=== PATIENT | female | born 1995 | race Caucasian/White ===

== ENCOUNTER 2016-08-14 14:14 | Emergency (ER) | payer OTHER ==
[2016-08-14] MEDS ORDERED: predniSONE 20 MG TABLET PO STA (16:20)
[2016-08-14] MEDS ORDERED: predniSONE 20 MG TABLET ONE (16:22)
--- NOTE | 2016-08-14 16:23 | ED Physician Documentation ---
PD HPI SKIN - Stated complaint Stated Complaint: SOA/ALLERGIC RX TO PERSCRIPTION/HIVES - Chief complaint Chief Complaint: Allergic Rx - History obtained from History obtained from: Patient - History of Present Illness Timing - onset: Other (21-year-old who has been on a few days worth of Macrobid and Pyridium. She's never been on Macrobid before, but has been on Pyridium multiple times. Her UTI symptoms are pretty much gone but today she developed an itchy rash which responded to Benadryl and some shortness of breath without overt wheezing.) Review of Systems Constitutional: denies: Fever, Chills Nose: denies: Rhinorrhea / runny nose, Congestion Throat: denies: Sore throat Cardiac: denies: Chest pain / pressure, Palpitations, Pedal edema, Calf pain Respiratory: denies: Hemoptysis, Wheezing PD PAST MEDICAL HISTORY - Past Medical History Respiratory: Asthma : Kidney stones, Chronic bladder infection - Past Surgical History Past Surgical History: No - Present Medications Home Medications: Ambulatory Orders Medication Instructions Recorded Confirmed Nitrofurantoin Monohyd/M-Cryst 1 tab PO BID 08/14/16 08/14/16 [Nitrofurantoin [place]-Mcr 100 mg] Phenazopyridine [Pyridium] 2 tab PO TID 08/14/16 08/14/16 predniSONE [Deltasone] 60 mg PO DAILY 5 Days 08/14/16 - Allergies Allergies/Adverse Reactions: Allergies Allergy/AdvReac Type Severity Reaction Status Date / Time latex Allergy Intermediate unknown Verified 08/14/16 14:25 Penicillins Allergy Mild unknown Verified 08/14/16 14:25 Sulfa (Sulfonamide Allergy Edema Verified 08/14/16 14:25 Antibiotics) acetaminophen [From Vicodin] AdvReac Mild unknown Verified 08/14/16 14:25 codeine [Codeine] AdvReac Mild Nausea Verified 08/14/16 14:25 hydrocodone bitartrate * AdvReac Mild unknown Verified 08/14/16 14:25 [From Vicodin] tape AdvReac Mild unknown Uncoded 08/14/16 14:25 - Social History Does the pt smoke?: Yes Smoking Status: Current every day smoker Does the pt drink ETOH?: No Does the pt have substance abuse?: Yes - Immunizations Immunizations are current?: Yes - POLST Patient has POLST: No PD ED PE NORMAL - Vitals Vital signs reviewed: Yes - General General: Alert and oriented X 3, No acute distress - HEENT HEENT: PERRL, Pharynx benign - Neck Neck: Supple, no meningeal sign, No bony TTP - Cardiac Cardiac: RRR, No murmur - Respiratory Respiratory: No respiratory distress, Clear bilaterally - Abdomen Abdomen: Non tender - Back Back: No CVA TTP - Derm Derm: Other (Mild urticaria to the thighs) - Extremities Extremities: No edema, No calf tenderness / cord - Neuro Neuro: Alert and oriented X 3, Normal speech Results - Vitals Vitals: Vital Signs - 24 hr 08/14/16 14:16 Temperature 36.8 C Heart Rate 107 H Respiratory 18 Rate Blood Pressure 117/79 O2 Saturation 100 Oxygen O2 Source Room air Departure - Departure Disposition: 01 Home, Self Care Clinical Impression: Allergic urticaria Condition: Good Record reviewed to determine appropriate education?: Yes Instructions: ED Allergic Reaction General Other Prescriptions: predniSONE [Deltasone] 60 mg PO DAILY 5 Days Comments: You can continue to take Benadryl as needed for the itching. Return if worse. Followup with your physician. Avoid taking Macrobid/nitrofurantoin in the future. Return for any worsening complaints or recurrent UTI symptoms. Forms: Activity restrictions
[2016-08-14 16:32] VITALS: BP 114/74
== END 2016-08-14 16:31 | disposition home or self-care (01) ==
LOC: ED 14:14
DX: L50.0 Allergic urticaria (principal); Z87.442 Personal history of urinary calculi; F17.200 Nicotine dependence, unspecified, uncomplicated
CPT/HCPCS: 99283; J7512

== ENCOUNTER 2017-03-24 14:35 | Emergency (ER) | payer OTHER, MEDICAID ==
[2017-03-24 15:28] LABS: BASOPHILS # (AUTO) 0.1 10^3/uL (0.0-0.1); BASOPHILS % (AUTO) 0.9 %; EOSINOPHILS # (AUTO) 0.3 10^3/uL (0.0-0.7); EOSINOPHILS % (AUTO) 3.2 %; HGB - HEMOGLOBIN 13.6 g/dL (12.0-16.0); LYMPHOCYTES # (AUTO) 1.9 10^3/uL (1.5-3.5); LYMPHOCYTES % (AUTO) 21.3 %; MEAN CORPUSCULAR HEMOGLOBIN 29.7 pg (27.0-31.0); MEAN CORPUSCULAR HGB CONC 34.5 g/dL (32.0-36.0); MEAN CORPUSCULAR VOLUME 86.1 fL (81.0-99.0); MEAN PLATELET VOLUME 8.3 fL (7.9-10.8); MONOCYTES # (AUTO) 0.6 10^3/uL (0.0-1.0); MONOCYTES % (AUTO) 7.1 %; NEUTROPHILS # (AUTO) 5.9 10^3/uL (1.5-6.6); NEUTROPHILS % (AUTO) 67.5 %; PLT - PLATELET COUNT 252 10^3/uL (130-450); RED BLOOD COUNT 4.59 10^6/uL (4.20-5.40); RED CELL DISTRIBUTION WIDTH 13.9 % (12.0-15.0); WHITE BLOOD COUNT 8.7 x10^3/uL (4.8-10.8)
[2017-03-24 15:31] LABS: ALBUMIN 4.6 g/dL (3.2-5.5); ALBUMIN/GLOBULIN RATIO 1.6 (1.0-2.2); BILIRUBIN,TOTAL 1.1 mg/dL (0.2-1.0); CREATININE 0.7 mg/dL (0.4-1.0); INR 1.1 (0.8-1.2); PT - PROTHROMBIN TIME 11.9 secs (9.9-12.6); TOTAL PROTEIN 7.4 g/dL (6.7-8.2)
[2017-03-24 16:08] LABS: HCG,QUALITATIVE BLOOD NEGATIVE
--- NOTE | 2017-03-24 16:20 | ED Physician Documentation ---
History of Present Illness - Stated complaint Stated Complaint: FEMALE /??? - Chief complaint Chief Complaint: Abd Pain - Additonal information Additional information: hx from pt 21 f LMP Nov not on control to ER with pelvic cramping and bleeding onset this AM states bleeding heavy with clots changing pad [id number] no trauma Review of Systems Constitutional: denies: Fever GI: reports: Abdominal Pain : reports: LMP (Nov), Vaginal bleeding. denies: Now EGA (maybe) Endocrine: denies: Easy bruising / bleeding Immunocompromised: denies: Immunocompromised PD PAST MEDICAL HISTORY - Past Medical History Respiratory: Asthma : Kidney stones, Chronic bladder infection - Past Surgical History Past Surgical History: No - Present Medications Home Medications: Ambulatory Orders Medication Instructions Recorded Confirmed Nitrofurantoin Monohyd/M-Cryst 1 tab PO BID 08/14/16 08/14/16 [Nitrofurantoin [place]-Mcr 100 mg] Phenazopyridine [Pyridium] 2 tab PO TID 08/14/16 08/14/16 predniSONE [Deltasone] 60 mg PO DAILY 5 Days tablet 08/14/16 Cyclobenzaprine [Flexeril] 10 mg PO TID PRN #10 tablet 03/24/17 Ibuprofen [Motrin] 800 mg PO Q8H PRN #30 tablet 03/24/17 - Allergies Allergies/Adverse Reactions: Allergies Allergy/AdvReac Type Severity Reaction Status Date / Time latex Allergy Intermediate unknown Verified 08/14/16 14:25 Penicillins Allergy Mild unknown Verified 08/14/16 14:25 Sulfa (Sulfonamide Allergy Edema Verified 08/14/16 14:25 Antibiotics) acetaminophen [From Vicodin] AdvReac Mild unknown Verified 08/14/16 14:25 codeine [Codeine] AdvReac Mild Nausea Verified 08/14/16 14:25 hydrocodone bitartrate * AdvReac Mild unknown Verified 08/14/16 14:25 [From Vicodin] nitrofurantoin AdvReac Rash Verified 08/14/16 16:30 [From Macrobid] nitrofurantoin AdvReac Rash Verified 08/14/16 16:30 macrocrystalline * [From Macrobid] tape AdvReac Mild unknown Uncoded 08/14/16 14:25 - Social History Does the pt smoke?: Yes Smoking Status: Current every day smoker Does the pt drink ETOH?: No Does the pt have substance abuse?: Yes - Immunizations Immunizations are current?: Yes - POLST Patient has POLST: No PD ED PE NORMAL - Vitals Vital signs reviewed: Yes - Cardiac Cardiac: RRR - Respiratory Respiratory: No respiratory distress, Clear bilaterally - Abdomen Abdomen: Soft, Non tender - Female 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), Other (dark blood from os and in vault no dc no sig CMT cervix closed no tissue no visible lac) - Extremities Extremities: No deformity Results - Vitals Vitals: Vital Signs - 24 hr 03/24/17 03/24/17 14:44 18:28 Temperature 36.4 C L Heart Rate 92 73 Respiratory 18 18 Rate Blood Pressure 134/75 H 112/52 L O2 Saturation 100 97 Oxygen O2 Source Room air - Labs Labs: Microbiology 03/24/17 15:50 Wet Prep - Final Genital - Cervix Laboratory Tests 03/24/17 03/24/17 03/24/17 15:11 15:11 15:11 WBC 8.7 RBC 4.59 Hgb 13.6 Hct 39.5 MCV 86.1 MCH 29.7 MCHC 34.5 RDW 13.9 Plt Count 252 MPV 8.3 Neut # 5.9 Lymph # 1.9 [place] # 0.6 Eos # 0.3 Baso # 0.1 Absolute Nucleated RBC 0.00 Nucleated RBC % 0.0 PT 11.9 INR 1.1 APTT 29.4 Sodium 137 Potassium 4.0 Chloride 106 Carbon Dioxide 24 Anion Gap 7.0 BUN 13 Creatinine 0.7 Estimated GFR (MDRD) 104 Glucose 99 Calcium 9.0 Total Bilirubin 1.1 H AST 21 ALT 12 Alkaline Phosphatase 40 L Total Protein 7.4 Albumin 4.6 Globulin 2.8 Albumin/Globulin Ratio 1.6 Lipase 13 L Serum HCG, Qual Urine Color Urine Clarity Urine pH Ur Specific [place] Urine Protein Urine Glucose (UA) Urine Ketones Urine Occult Blood Urine Nitrite Urine Bilirubin Urine Urobilinogen Ur Leukocyte Esterase Urine RBC Urine WBC Ur Squamous Epith Cells Urine Bacteria Ur Microscopic Review Urine Culture Comments 03/24/17 03/24/17 15:11 17:10 WBC RBC Hgb Hct MCV MCH MCHC RDW Plt Count MPV Neut # Lymph # [place] # Eos # Baso # Absolute Nucleated RBC Nucleated RBC % PT INR APTT Sodium Potassium Chloride Carbon Dioxide Anion Gap BUN Creatinine Estimated GFR (MDRD) Glucose Calcium Total Bilirubin AST ALT Alkaline Phosphatase Total Protein Albumin Globulin Albumin/Globulin Ratio Lipase Serum HCG, Qual NEGATIVE Urine Color YELLOW Urine Clarity CLEAR Urine pH 8.0 H Ur Specific [place] 1.020 Urine Protein NEGATIVE Urine Glucose (UA) NEGATIVE Urine Ketones TRACE Urine Occult Blood LARGE H Urine Nitrite NEGATIVE Urine Bilirubin NEGATIVE Urine Urobilinogen 0.2 (NORMAL) Ur Leukocyte Esterase NEGATIVE Urine RBC TNTC H Urine WBC 6-10 H Ur Squamous Epith Cells FEW Squamous Urine Bacteria Few Ur Microscopic Review INDICATED Urine Culture Comments INDICATED Departure - Departure Disposition: 01 Home, Self Care Clinical Impression: Dysfunctional uterine bleeding Condition: Good Instructions: ED Bleed Irregular Vaginal Follow-Up: Michael Stoner MD [Provider Admit Priv/Credential] - Prescriptions: Cyclobenzaprine [Flexeril] 10 mg PO TID PRN #10 tablet PRN Reason: cramping Ibuprofen [Motrin] 800 mg PO Q8H PRN #30 tablet PRN Reason: Pain Forms: Activity restrictions
[2017-03-24] MEDS ORDERED: KETOROLAC 60 MG/2 ML VIAL IVP STA (17:27)
[2017-03-24 17:47] LABS: BILIRUBIN,URINE NEGATIVE (NEGATIVE); GLUCOSE, URINE (UA) NEGATIVE (NEGATIVE); KETONES,URINE (UA) TRACE mg/dL (NEGATIVE); LEUKOCYTE ESTERASE, URINE NEGATIVE (NEGATIVE); NITRITE,URINE NEGATIVE (NEGATIVE); OCCULT BLOOD,URINE LARGE (NEGATIVE); PROTEIN,URINE NEGATIVE (NEGATIVE); UROBILINOGEN,URINE 0.2 (NORMAL) E.U./dL (NORMAL)
[2017-03-24 17:51] LABS: CLARITY,URINE CLEAR (CLEAR)
[2017-03-24 17:59] LABS: BACTERIA,URINE Few /HPF (None Seen); RBC,URINE TNTC /HPF (0-5); SQUAMOUS EPITHELIAL CELL,UR FEW Squamous (<= Few)
[2017-03-24] MEDS ORDERED: KETOROLAC 60 MG/2 ML VIAL IM STA (18:15)
--- NOTE | 2017-03-24 18:27 | Ultrasound Report ---
EXAM: PELVIC ULTRASOUND EXAM DATE: 03/24/2017 05:53 PM. CLINICAL HISTORY: Vaginal bleeding. COMPARISON: None. TECHNIQUE: Realtime transabdominal pelvic scan performed to identify the uterus and adnexa and as an overview of other pelvic structures, followed by transvaginal scan to provide greater detail of the u terus and adnexa, with static image documentation. FINDINGS: Uterus: 7.0 x 2.9 x 4.1 cm, volume 43 cc. Anteverted position. Normal overall size and echotexture. Masses: None. Endometrium: 9 mm. Normal. Cervix: Unremarkable. Right Ovary: 3.3 x 2.2 x 1.8 cm, volume 7 cc. Normal echotexture and blood flow. Left Ovary: 2.9 x 2.0 x 2.5 cm, volume 8 cc. Normal echotexture and blood flow. Free Fluid: None. Other: None. IMPRESSION: Normal pelvic ultrasound. [facility] Referring Provider Line: [phone] SITE ID: [id number]
[2017-03-24 18:29] VITALS: BP 112/52
== END 2017-03-24 19:06 | disposition home or self-care (01) ==
LOC: ED 14:35
DX: N93.8 Other specified abnormal uterine and vaginal bleeding (principal); J45.909 Unspecified asthma, uncomplicated; Z87.442 Personal history of urinary calculi; F17.200 Nicotine dependence, unspecified, uncomplicated
CPT/HCPCS: 36415; 76830; 76856; 80053; 81001; 81003; 83690; 84703; 85025; 85610; 85730; 87086; 87210; 87491; 87591; 93975; 96372; 99283

== ENCOUNTER 2018-06-05 11:34 | Emergency (ER) | payer MEDICAID, OTHER ==
[2018-06-05 12:13] LABS: BILIRUBIN,URINE NEGATIVE (NEGATIVE); GLUCOSE, URINE (UA) NEGATIVE (NEGATIVE); KETONES,URINE (UA) TRACE mg/dL (NEGATIVE); LEUKOCYTE ESTERASE, URINE NEGATIVE (NEGATIVE); NITRITE,URINE NEGATIVE (NEGATIVE); OCCULT BLOOD,URINE NEGATIVE (NEGATIVE); PH,URINE 7.5 PH (5.0-7.5); PROTEIN,URINE NEGATIVE (NEGATIVE); UROBILINOGEN,URINE 0.2 (NORMAL) E.U./dL (NORMAL)
[2018-06-05 12:17] LABS: CLARITY,URINE HAZY (CLEAR); HCG UR QUAL NEGATIVE
[2018-06-05 12:28] LABS: BACTERIA,URINE Rare /HPF (None Seen); RBC,URINE 0-5 /HPF (0-5); SQUAMOUS EPITHELIAL CELL,UR MOD Squamous (<= Few)
[2018-06-05] MEDS ORDERED: LORazepam 2 MG/ML VIAL IVP STA (12:41)
[2018-06-05] MEDS ORDERED: KETOROLAC 30 MG/ML VIAL IVP STA (12:41)
--- NOTE | 2018-06-05 12:43 | ED Physician Documentation ---
History of Present Illness - Stated complaint Stated Complaint: SOA,BODY NUMBNESS - Chief complaint Chief Complaint: General - History obtained from History obtained from: Patient - History of Present Illness Timing: Last night (23-year-old woman without significant past medical history started to have a minimally productive cough with shortness of breath last night. Today the shortness of breath was much worse, especially on exertion and she started to become dizzy and have hand cramps and hyperventilating get numb and tingly all over especially in the hands, feet, and face. She denies fevers or chills. She has left lower chest pain that is worse with deep breathing and coughing. She denies pedal edema or calf pain. She is not on control pills. No recent travel.) Review of Systems Ten Systems: 10 systems reviewed and negative Constitutional: denies: Fever, Chills Throat: denies: Sore throat Cardiac: reports: Chest pain / pressure. denies: Palpitations, Pedal edema, Calf pain Respiratory: reports: Dyspnea, Cough. denies: Hemoptysis, Wheezing PD PAST MEDICAL HISTORY - Past Medical History Respiratory: Asthma : Kidney stones, Chronic bladder infection - Past Surgical History Past Surgical History: No - Present Medications Home Medications: Ambulatory Orders Medication Instructions Recorded Confirmed Benzonatate [Tessalon Perle] 100 - 200 mg PO TID PRN #30 capsule 06/05/18 guaiFENesin/CODEINE [Robitussin AC] 5 - 10 ml PO Q6H PRN #120 ml 06/05/18 - Allergies Allergies/Adverse Reactions: Allergies Allergy/AdvReac Type Severity Reaction Status Date / Time latex Allergy Intermediate unknown Verified 06/05/18 11:44 Penicillins Allergy Mild unknown Verified 06/05/18 11:44 Sulfa (Sulfonamide Allergy Edema Verified 06/05/18 11:44 Antibiotics) acetaminophen [From Vicodin] AdvReac Mild unknown Verified 06/05/18 11:44 codeine [Codeine] AdvReac Mild Nausea Verified 06/05/18 11:44 hydrocodone bitartrate * AdvReac Mild unknown Verified 06/05/18 11:44 [From Vicodin] nitrofurantoin AdvReac Rash Verified 06/05/18 11:44 [From Macrobid] nitrofurantoin AdvReac Rash Verified 06/05/18 11:44 macrocrystalline * [From Macrobid] tape AdvReac Mild unknown Uncoded 06/05/18 11:44 - Social History Does the pt smoke?: Yes Smoking Status: Current every day smoker Does the pt drink ETOH?: No Does the pt have substance abuse?: Yes - Immunizations Immunizations are current?: Yes - POLST Patient has POLST: No PD ED PE NORMAL - Vitals Vital signs reviewed: Yes - General General: Alert and oriented X 3, No acute distress - HEENT HEENT: PERRL, EOMI, Pharynx benign - Neck Neck: Supple, no meningeal sign, No bony TTP - Cardiac Cardiac: RRR, No murmur - Respiratory Respiratory: No respiratory distress, Clear bilaterally - Abdomen Abdomen: Normal bowel sounds, Soft, Non tender - Extremities Extremities: No edema, No calf tenderness / cord - Neuro Neuro: Alert and oriented X 3, Normal speech Results - Vitals Vitals: Vital Signs - 24 hr 06/05/18 06/05/18 11:41 13:34 Temperature 36.4 C L Heart Rate 103 H 91 Respiratory 24 14 Rate Blood Pressure 132/61 H 119/64 O2 Saturation 100 99 Oxygen O2 Source Room air - Labs Labs: Laboratory Tests 06/05/18 06/05/18 06/05/18 11:56 12:34 12:34 WBC 6.2 RBC 4.23 Hgb 12.8 Hct 37.7 MCV 89.2 MCH 30.2 MCHC 33.9 RDW 12.7 Plt Count 238 MPV 8.4 Neut # (Auto) 4.8 Lymph # (Auto) 0.6 L [place] # (Auto) 0.6 Eos # (Auto) 0.1 Baso # (Auto) 0.0 Absolute Nucleated RBC 0.00 Nucleated RBC % 0.0 D-Dimer VBG pH VBG pCO2 VBG pO2 VBG HCO3 VBG Total CO2 VBG O2 Saturation VBG Base Excess Sodium 136 Potassium 3.4 L Chloride 103 Carbon Dioxide 25 Anion Gap 8.0 BUN 13 Creatinine 0.6 Estimated GFR (MDRD) 122 Glucose 107 H Calcium 8.9 Total Bilirubin 1.1 H AST 23 ALT 14 Alkaline Phosphatase 35 L Total Protein 7.0 Albumin 4.1 Globulin 2.9 Albumin/Globulin Ratio 1.4 Lipase 23 Urine Color YELLOW Urine Clarity HAZY Urine pH 7.5 Ur Specific [place] 1.015 Urine Protein NEGATIVE Urine Glucose (UA) NEGATIVE Urine Ketones TRACE Urine Occult Blood NEGATIVE Urine Nitrite NEGATIVE Urine Bilirubin NEGATIVE Urine Urobilinogen 0.2 (NORMAL) Ur Leukocyte Esterase NEGATIVE Urine RBC 0-5 Urine WBC 0-3 Ur Squamous Epith Cells MOD Squamous H Urine Bacteria Rare Ur Microscopic Review INDICATED Urine Culture Comments NOT INDICATED Urine HCG, Qual NEGATIVE 06/05/18 06/05/18 12:34 12:34 WBC RBC Hgb Hct MCV MCH MCHC RDW Plt Count MPV Neut # (Auto) Lymph # (Auto) [place] # (Auto) Eos # (Auto) Baso # (Auto) Absolute Nucleated RBC Nucleated RBC % D-Dimer 172.6 L VBG pH 7.418 H VBG pCO2 37.9 L VBG pO2 46.2 VBG HCO3 23.9 VBG Total CO2 25.1 VBG O2 Saturation 83.7 H VBG Base Excess -0.3 Sodium Potassium Chloride Carbon Dioxide Anion Gap BUN Creatinine Estimated GFR (MDRD) Glucose Calcium Total Bilirubin AST ALT Alkaline Phosphatase Total Protein Albumin Globulin Albumin/Globulin Ratio Lipase Urine Color Urine Clarity Urine pH Ur Specific [place] Urine Protein Urine Glucose (UA) Urine Ketones Urine Occult Blood Urine Nitrite Urine Bilirubin Urine Urobilinogen Ur Leukocyte Esterase Urine RBC Urine WBC Ur Squamous Epith Cells Urine Bacteria Ur Microscopic Review Urine Culture Comments Urine HCG, Qual - Rads (name of study) 2v chest Radiology: EMP read contemporaneously (normal) PD MEDICAL DECISION MAKING - ED course ED course: This is a 23-year-old woman who had a cough since last night which worsened today and then became more short of breath with chest pain, and what sounds like a panic attack. She was tachycardic so a PE workup was done with negative d- dimer, clear chest x-ray and otherwise reassuring otherwise. She felt better but not resolved here with some Toradol and Ativan but was no longer hyperventilating. Departure - Departure Disposition: 01 Home, Self Care Clinical Impression: Cough, Panic attack Dyspnea Qualifiers: Dyspnea type: shortness of breath Qualified Code(s): R06.02 - Shortness of breath Condition: Good Record reviewed to determine appropriate education?: Yes Instructions: ED Dyspnea Shortness of Breath, ED Panic Attack Prescriptions: Benzonatate [Tessalon Perle] 100 - 200 mg PO TID PRN #30 capsule PRN Reason: Cough guaiFENesin/CODEINE [Robitussin AC] 5 - 10 ml PO Q6H PRN #120 ml PRN Reason: Cough Comments: Call your doctor to arrange a follow-up appointment, make the next available appointment. In the interim, return anytime if worse or if new symptoms develop. Forms: Activity restrictions
[2018-06-05 12:47] LABS: VBG BASE EXCESS -0.3 mmol/L (-2 - +2); VBG PCO2 37.9 mmHg (41-51); VBG PH 7.418 (7.31-7.41); VBG PO2 46.2 mmHg (25-47); VBG TOTAL CO2 25.1 mmol/L (24-29)
[2018-06-05 13:06] LABS: BASOPHILS % (AUTO) 0.6 %; EOSINOPHILS # (AUTO) 0.1 10^3/uL (0.0-0.7); EOSINOPHILS % (AUTO) 2.1 %; HGB - HEMOGLOBIN 12.8 g/dL (12.0-16.0); LYMPHOCYTES # (AUTO) 0.6 10^3/uL (1.5-3.5); LYMPHOCYTES % (AUTO) 9.4 %; MEAN CORPUSCULAR HEMOGLOBIN 30.2 pg (27.0-31.0); MEAN CORPUSCULAR HGB CONC 33.9 g/dL (32.0-36.0); MEAN CORPUSCULAR VOLUME 89.2 fL (81.0-99.0); MEAN PLATELET VOLUME 8.4 fL (7.9-10.8); MONOCYTES # (AUTO) 0.6 10^3/uL (0.0-1.0); MONOCYTES % (AUTO) 9.7 %; NEUTROPHILS # (AUTO) 4.8 10^3/uL (1.5-6.6); NEUTROPHILS % (AUTO) 78.2 %; PLT - PLATELET COUNT 238 10^3/uL (130-450); RED BLOOD COUNT 4.23 10^6/uL (4.20-5.40); RED CELL DISTRIBUTION WIDTH 12.7 % (12.0-15.0); WHITE BLOOD COUNT 6.2 x10^3/uL (4.8-10.8)
[2018-06-05 13:19] LABS: ALBUMIN 4.1 g/dL (3.2-5.5); ALBUMIN/GLOBULIN RATIO 1.4 (1.0-2.2); BILIRUBIN,TOTAL 1.1 mg/dL (0.2-1.0); CALCIUM 8.9 mg/dL (8.5-10.3); CREATININE 0.6 mg/dL (0.4-1.0)
[2018-06-05 13:35] VITALS: BP 119/64
--- NOTE | 2018-06-05 13:41 | XRAY Report ---
Reason: dyspnea cough Procedure Date: 06/05/2018 Accession Number: [id number] / [id number] Procedure: XR - Chest 2 View X-Ray CPT Code: 02290 FULL RESULT: EXAM: CHEST RADIOGRAPHY EXAM DATE: 06/05/2018 01:24 PM. CLINICAL HISTORY: Dyspnea cough. COMPARISON: None. TECHNIQUE: 2 views. FINDINGS: Lungs/Pleura: No focal opacities evident. No pleural effusion. No pneumothorax. Normal volumes. Mediastinum: Heart and mediastinal contours are unremarkable. Other: Negative bony structures. IMPRESSION: Normal 2-view chest radiography. [facility]
== END 2018-06-05 14:00 | disposition home or self-care (01) ==
LOC: ED 11:34
DX: R06.02 Shortness of breath (principal); R05 Cough; F41.0 Panic disorder [episodic paroxysmal anxiety]; F17.200 Nicotine dependence, unspecified, uncomplicated
CPT/HCPCS: 36415; 71046; 80053; 81001; 81025; 82803; 83690; 85025; 85379; 96374; 99283; J2060; 81003; 87086

== ENCOUNTER 2018-09-16 08:00 | Outpatient (CLI) | payer OTHER ==
[2018-09-16 18:13] LABS: BILIRUBIN,URINE NEGATIVE (NEGATIVE); GLUCOSE, URINE (UA) NEGATIVE (NEGATIVE); KETONES,URINE (UA) NEGATIVE (NEGATIVE); LEUKOCYTE ESTERASE, URINE TRACE (NEGATIVE); NITRITE,URINE NEGATIVE (NEGATIVE); OCCULT BLOOD,URINE MODERATE (NEGATIVE); PH,URINE 5.5 PH (5.0-7.5); PROTEIN,URINE NEGATIVE (NEGATIVE); UROBILINOGEN,URINE 0.2 (NORMAL) E.U./dL (NORMAL)
[2018-09-16 18:20] LABS: CLARITY,URINE CLOUDY (CLEAR)
[2018-09-16 18:30] LABS: BACTERIA,URINE Moderate /HPF (None Seen); SQUAMOUS EPITHELIAL CELL,UR MOD Squamous (<= Few)
== END 2018-09-16 23:59 | disposition home or self-care (01) ==
LOC: LAB.R 08:00
PROVIDERS: ATTEND Obstetrics & Gynecology
DX: R39.15 Urgency of urination (principal)
CPT/HCPCS: 81001; 81003; 87086

== ENCOUNTER 2018-09-16 14:44 | Outpatient (CLI) | payer OTHER ==
[2018-09-16 22:04] LABS: TRICHOMONAS VAGINALIS DNA NEGATIVE (NEGATIVE)
[2018-09-17 16:09] LABS: HIV AG/AB 4TH GEN NON-REACTIVE (NON-REACTIVE)
[2018-09-18 12:24] LABS: HEPATITIS B SURFACE ANTIGEN NON-REACTIVE (NON-REACTIVE)
[2018-09-18 14:13] LABS: HEPATITIS C ANTIBODY NON-REACTIVE (NON-REACTIVE)
== END 2018-09-16 14:45 | disposition home or self-care (01) ==
LOC: LAB 14:44
PROVIDERS: ATTEND Obstetrics & Gynecology
DX: Z11.3 Encounter for screening for infections with a predominantly sexual mode of transmission (principal); R39.15 Urgency of urination
CPT/HCPCS: 36415; 81001; 81599; 86592; 86803; 87340; 87389; 87491; 87591; 87661

== ENCOUNTER 2018-10-07 08:00 | Outpatient (CLI) | payer OTHER | END 2018-10-07 23:59 | disposition home or self-care (01) | LOC: LAB.R 08:00 | PROVIDERS: ATTEND Obstetrics & Gynecology | DX: A60.00 Herpesviral infection of urogenital system, unspecified (principal) | CPT/HCPCS: 81599; 87255 ==

== ENCOUNTER 2018-10-07 14:35 | Outpatient (CLI) | payer OTHER ==
[2018-10-09 10:42] LABS: HSV 2 IGG TYPE SPECIFIC AB <0.90 index
== END 2018-10-07 14:36 | disposition home or self-care (01) ==
LOC: LAB 14:35
PROVIDERS: ATTEND Obstetrics & Gynecology
DX: A60.00 Herpesviral infection of urogenital system, unspecified (principal)
CPT/HCPCS: 36415; 81599; 86695; 86696

== ENCOUNTER 2018-12-29 11:49 | Emergency (ER) | payer OTHER ==
--- NOTE | 2018-12-29 12:13 | ED Physician Documentation ---
History of Present Illness - Stated complaint Stated Complaint: ABD PX - Chief complaint Chief Complaint: Abd Pain - Additonal information Additional information: This is a 23-year-old female with history of kidney stones, who presents with some abdominal pain for around 1 week. Patient states she saw her primary care provider who stated that this could be an hernia, though it sound like she did not definitively be palpate any. She counseled her on supportive care and asked her to follow-up if she is having any worsening. Patient has had intermittent stabbing pains in the left lower quadrant over the last several days, no nausea or vomiting, no diarrhea. Her period began yesterday, she is having increased discomfort.She has not noticed any bulges or masses. Review of Systems Constitutional: denies: Fever Nose: denies: Rhinorrhea / runny nose Respiratory: denies: Dyspnea GI: reports: Abdominal Pain. denies: Vomiting : denies: Dysuria PD PAST MEDICAL HISTORY - Past Medical History Respiratory: Asthma : Kidney stones, Chronic bladder infection Psych: Anxiety - Past Surgical History Past Surgical History: No - Present Medications Home Medications: Ambulatory Orders Medication Instructions Recorded Confirmed No Known Home Medications 12/29/18 12/29/18 - Allergies Allergies/Adverse Reactions: Allergies Allergy/AdvReac Type Severity Reaction Status Date / Time latex Allergy Intermediate unknown Verified 12/29/18 11:58 Penicillins Allergy Mild unknown Verified 12/29/18 11:58 Sulfa (Sulfonamide Allergy Edema Verified 12/29/18 11:58 Antibiotics) acetaminophen [From Vicodin] AdvReac Mild unknown Verified 12/29/18 11:58 codeine [Codeine] AdvReac Mild Nausea Verified 12/29/18 11:58 hydrocodone bitartrate * AdvReac Mild unknown Verified 12/29/18 11:58 [From Vicodin] nitrofurantoin AdvReac Rash Verified 12/29/18 11:58 [From Macrobid] nitrofurantoin AdvReac Rash Verified 12/29/18 11:58 macrocrystalline * [From Macrobid] tape AdvReac Mild unknown Uncoded 12/29/18 11:58 - Social History Does the pt smoke?: Yes Smoking Status: Current every day smoker Does the pt drink ETOH?: No Does the pt have substance abuse?: Yes - Immunizations Immunizations are current?: Yes - POLST Patient has POLST: No PD ED PE NORMAL - Vitals Vital signs reviewed: Yes - General General: Alert and oriented X 3, No acute distress - HEENT HEENT: PERRL - Neck Neck: Supple, no meningeal sign - Cardiac Cardiac: RRR, No murmur - Respiratory Respiratory: Clear bilaterally - Abdomen Abdomen: Soft, Non tender, Non distended, Other (Mild tenderness in the left lower quadrant, no right upper quadrant or right lower quadrant tenderness. No palpable masses in the inguinal region) - Derm Derm: Warm and dry - Extremities Extremities: No deformity - Neuro Neuro: Alert and oriented X 3 - Psych Psych: Normal mood, Normal affect Results - Vitals Vitals: Oxygen O2 Source Room air - Labs Labs: Laboratory Tests 12/29/18 12/29/18 12/29/18 12:03 12:11 12:11 WBC 7.3 RBC 4.15 L Hgb 12.3 Hct 36.8 L MCV 88.7 MCH 29.6 MCHC 33.4 RDW 12.5 Plt Count 290 MPV 10.2 Neut # (Auto) 4.3 Lymph # (Auto) 2.0 [place] # (Auto) 0.6 Eos # (Auto) 0.3 Baso # (Auto) 0.1 Absolute Nucleated RBC 0.00 Nucleated RBC % 0.0 Sodium 141 Potassium 3.7 Chloride 107 Carbon Dioxide 25 Anion Gap 9.0 BUN 13 Creatinine 0.7 Estimated GFR (MDRD) 102 Glucose 89 Calcium 9.0 Total Bilirubin 0.4 AST 20 ALT 13 Alkaline Phosphatase 42 Total Protein 7.6 Albumin 4.3 Globulin 3.3 Albumin/Globulin Ratio 1.3 Lipase 28 Urine Color YELLOW Urine Clarity CLEAR Urine pH 6.5 Ur Specific [place] 1.020 Urine Protein NEGATIVE Urine Glucose (UA) NEGATIVE Urine Ketones NEGATIVE Urine Occult Blood TRACE-LYSE Urine Nitrite NEGATIVE Urine Bilirubin NEGATIVE Urine Urobilinogen 0.2 (NORMAL) Ur Leukocyte Esterase NEGATIVE Ur Microscopic Review NOT INDICATED Urine Culture Comments NOT INDICATED Urine HCG, Qual NEGATIVE - Rads (name of study) US pelvic Radiology: Other (Ovaries are normal in appearance without signs of torsion.) PD MEDICAL DECISION MAKING - ED course Complexity details: considered differential (Hernia, torsion, hemorrhagic cyst, diverticulitis, UTI, ) ED course: On my exam patient is very well-appearing, she has a mild amount of tenderness in her left lower quadrant, no guarding. Remainder of abdomen is nontender. There are no palpable masses. I do not palpate any inguinal masses either. She points at one spot where she feels that she can palpate something, and this is a small 1 cm rubbery mobile structure in her inguinal crease, which is clearly a lymph node. Labs are unrevealing, she has no leukocytosis. hCG is negative. Urine is negative for infection. Pelvic ultrasound shows Normal blood flow to 2 unremarkable ovaries, no acute expansion of patient's pain. I reviewed the results of the patient, she continues to have a benign abdominal exam, and no new symptoms. I discussed that do not see an obvious cause of her pain as time, she should continue to follow with her primary care provider and If her primary care provider thought that she had convincing signs of hernia, she should follow with a general surgeon as well. Return precautions were reviewed along with supportive care patient was discharged home. Departure - Departure Disposition: 01 Home, Self Care Clinical Impression: Abdominal pain Qualifiers: Abdominal location: left lower quadrant Qualified Code(s): R10.32 - Left lower quadrant pain Condition: Good Instructions: ED Abdominal Pain Unkn Cause Follow-Up: Your,PCP [Other] Comments: You were seen today for abdominal pain, your labs today do not show any signs of infection or obvious cause for your pain. I do not see an obvious hernia on today's exam, please continue to follow-up with your primary care provider and if they feel that you do have a hernia you should follow-up with a general surgeon for evaluation as well. You may take Tylenol and ibuprofen for your discomfort in the meantime. Return to emergency department if you have any worsening symptoms Discharge Date/Time: 12/29/18 15:05
[2018-12-29 12:17] LABS: BASOPHILS # (AUTO) 0.1 10^3/uL (0.0-0.1); BASOPHILS % (AUTO) 0.7 %; EOSINOPHILS # (AUTO) 0.3 10^3/uL (0.0-0.7); EOSINOPHILS % (AUTO) 4.6 %; HGB - HEMOGLOBIN 12.3 g/dL (12.0-16.0); LYMPHOCYTES % (AUTO) 26.6 %; MEAN CORPUSCULAR HEMOGLOBIN 29.6 pg (27.0-31.0); MEAN CORPUSCULAR HGB CONC 33.4 g/dL (32.0-36.0); MEAN CORPUSCULAR VOLUME 88.7 fL (81.0-99.0); MEAN PLATELET VOLUME 10.2 fL (7.9-10.8); MONOCYTES # (AUTO) 0.6 10^3/uL (0.0-1.0); MONOCYTES % (AUTO) 8.7 %; NEUTROPHILS # (AUTO) 4.3 10^3/uL (1.5-6.6); NEUTROPHILS % (AUTO) 59.1 %; PLT - PLATELET COUNT 290 10^3/uL (130-450); RED BLOOD COUNT 4.15 10^6/uL (4.20-5.40); RED CELL DISTRIBUTION WIDTH 12.5 % (12.0-15.0); WHITE BLOOD COUNT 7.3 x10^3/uL (4.8-10.8)
[2018-12-29 12:31] LABS: ALBUMIN 4.3 g/dL (3.2-5.5); ALBUMIN/GLOBULIN RATIO 1.3 (1.0-2.2); BILIRUBIN,TOTAL 0.4 mg/dL (0.2-1.0); CREATININE 0.7 mg/dL (0.4-1.0); TOTAL PROTEIN 7.6 g/dL (6.7-8.2)
[2018-12-29 12:32] LABS: BILIRUBIN,URINE NEGATIVE (NEGATIVE); GLUCOSE, URINE (UA) NEGATIVE (NEGATIVE); KETONES,URINE (UA) NEGATIVE (NEGATIVE); LEUKOCYTE ESTERASE, URINE NEGATIVE (NEGATIVE); NITRITE,URINE NEGATIVE (NEGATIVE); OCCULT BLOOD,URINE TRACE-LYSE (NEGATIVE); PH,URINE 6.5 PH (5.0-7.5); PROTEIN,URINE NEGATIVE (NEGATIVE); UROBILINOGEN,URINE 0.2 (NORMAL) E.U./dL (NORMAL)
[2018-12-29 12:35] LABS: CLARITY,URINE CLEAR (CLEAR); HCG UR QUAL NEGATIVE
[2018-12-29 14:21] VITALS: BP 98/54
--- NOTE | 2018-12-30 | Ultrasound Report ---
Reason: pelvic pain, L Procedure Date: 12/29/2018 Accession Number: [id number] / [id number] Procedure: US - Pelvic w/Transvag+Doppler Comp CPT Code: Final Report FULL RESULT: EXAM: PELVIC ULTRASOUND WITH DOPPLERS CLINICAL HISTORY: Pelvic pain, L. COMPARISON: PEL NON OB W/TV DOP 03/24/2017 5:24 PM TECHNIQUE: Realtime transabdominal imaging performed to identify the uterus and adnexa and as an overview of other pelvic structures, followed by transvaginal imaging for better assessment of the endometrium and adnexa, with static image documentation. Color flow imaging and Doppler spectral analysis was performed to evaluate blood flow to the ovaries given pelvic pain and clinical concern for ovarian torsion. FINDINGS: Uterus: 7.2 x 3.5 x 4.4 cm, volume 58 cc. Anteverted position. Normal overall size and echotexture. Masses: None. Endometrium: 2.7 mm. Normal. Cervix: Unremarkable. Right Ovary: 3.3 x 1.4 x 2.5 cm, volume 6.0 cc. Normal echotexture. Arterial and venous blood flow are present. PSV 15.9 cm/sec. RI 0.65. Left Ovary: 3.4 x 2.0 x 2.6 cm, volume 9.2 cc. Normal echotexture. Arterial and venous blood flow are present. PSV 14.5 cm/sec. RI 0.57. Free Fluid: None. Other: None. IMPRESSION: 1. Normal pelvic ultrasound. 2. Arterial and venous blood flow are present to the ovaries bilaterally. [facility]
== END 2018-12-29 15:05 | disposition home or self-care (01) ==
LOC: ED 11:49
DX: R10.32 Left lower quadrant pain (principal); F17.200 Nicotine dependence, unspecified, uncomplicated
CPT/HCPCS: 36415; 76830; 76856; 80053; 81001; 81003; 81025; 83690; 85025; 87086; 93975; 99282; 99283

== ENCOUNTER 2020-04-28 04:06 | Emergency (ER) | payer OTHER ==
[2020-04-28 04:16] VITALS: BP 124/54
[2020-04-28] MEDS ORDERED: PROPARACAINE 0.5% OPHTH DROPS 15 ML EACHEYE STA (04:31)
--- NOTE | 2020-04-28 04:47 | ED Physician Documentation ---
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 She states that earlier in the week she had a foreign body that was removed from her eye but had improvement. She will do again today and despite wearing safety glasses felt some minor irritation gradual onset after work. She went to bed and woke up with severe eye irritation and inability to go back to sleep. Denies vision changes, eye discharge, or known foreign body. Review of Systems Eyes: reports: Irritation PD PAST MEDICAL HISTORY - Past Medical History Respiratory: Asthma : Kidney stones, Chronic bladder infection Psych: Anxiety - Past Surgical History Past Surgical History: No - Present Medications Home Medications: Ambulatory Orders Medication Instructions Recorded Confirmed Mineral Oil/Petrolatum,White 3.5 gm EACHEYE Q4H PRN 7 Days #1 04/28/20 [Lubricant Pm Eye Ointment] bottle Ofloxacin 0.3% Ophth Drops 1 drops EACHEYE Q4H 7 Days #1 04/28/20 [Ocuflox 0.3% Ophth Drops] bottle - Allergies Allergies/Adverse Reactions: Allergies Allergy/AdvReac Type Severity Reaction Status Date / Time latex Allergy Intermediate unknown Verified 12/29/18 11:58 Penicillins Allergy Mild unknown Verified 12/29/18 11:58 Sulfa (Sulfonamide Allergy Edema Verified 12/29/18 11:58 Antibiotics) acetaminophen [From Vicodin] AdvReac Mild unknown Verified 12/29/18 11:58 codeine [Codeine] AdvReac Mild Nausea Verified 12/29/18 11:58 hydrocodone bitartrate * AdvReac Mild unknown Verified 12/29/18 11:58 [From Vicodin] nitrofurantoin AdvReac Rash Verified 12/29/18 11:58 [From Macrobid] nitrofurantoin AdvReac Rash Verified 12/29/18 11:58 macrocrystalline * [From Macrobid] tape AdvReac Mild unknown Uncoded 12/29/18 11:58 - Social History Does the pt smoke?: Yes Smoking Status: Current every day smoker Does the pt drink ETOH?: No Does the pt have substance abuse?: Yes - Immunizations Immunizations are current?: Yes - POLST Patient has POLST: No PD ED PE NORMAL - Vitals Vital signs reviewed: Yes - General General: Alert and oriented X 3, No acute distress, Well developed/nourished - HEENT HEENT: Atraumatic, PERRL, EOMI, Other (Fluorescein exam shows diffuse increased uptake bilateral eyes indicating diffuse corneal injury. 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 Antibiotic and lubricating eyedrops/ointment given. Strict return precautions given. She will follow up with [facility]. Departure - Departure Disposition: 01 Home, Self Care Clinical Impression: Corneal abrasion Condition: Good Instructions: Corneal Injury Prescriptions: Mineral Oil/Petrolatum,White [Lubricant Pm Eye Ointment] 3.5 gm EACHEYE Q4H PRN 7 Days #1 bottle PRN Reason: Pain Ofloxacin 0.3% Ophth Drops [Ocuflox 0.3% Ophth Drops] 1 drops EACHEYE Q4H 7 Days #1 bottle Comments: You were seen in the emergency department for corneal injury related to welding. Take the antibiotic eyedrops and lubricating ointment as prescribed and follow- up with [facility] at [address] [place] [address]. [phone]. return to the ed for any new or worsening symptoms or other concerns.
== END 2020-04-28 04:55 | disposition home or self-care (01) ==
LOC: ED 04:06
DX: S05.02XA Injury of conjunctiva and corneal abrasion without foreign body, left eye, initial encounter (principal); S05.01XA Injury of conjunctiva and corneal abrasion without foreign body, right eye, initial encounter; W89.8XXA Exposure to other man-made visible and ultraviolet light, initial encounter; Y93.89 Activity, other specified; Y99.0 Civilian activity done for income or pay; F17.200 Nicotine dependence, unspecified, uncomplicated
CPT/HCPCS: 99282; 99283; J3490

== ENCOUNTER 2021-12-22 19:28 | Emergency (ER) | payer OTHER ==
[2021-12-22 20:06] LABS: BASOPHILS # (AUTO) 0.1 10^3/uL (0.0-0.1); BASOPHILS % (AUTO) 0.7 %; EOSINOPHILS # (AUTO) 0.7 10^3/uL (0.0-0.7); EOSINOPHILS % (AUTO) 7.8 %; HCT - HEMATOCRIT 39.6 % (37.0-47.0); HGB - HEMOGLOBIN 13.5 g/dL (12.0-16.0); LYMPHOCYTES # (AUTO) 3.3 10^3/uL (1.5-3.5); LYMPHOCYTES % (AUTO) 37.7 %; MEAN CORPUSCULAR HEMOGLOBIN 30.8 pg (27.0-31.0); MEAN CORPUSCULAR HGB CONC 34.1 g/dL (32.0-36.0); MEAN CORPUSCULAR VOLUME 90.2 fL (81.0-99.0); MEAN PLATELET VOLUME 10.2 fL (7.9-10.8); MONOCYTES # (AUTO) 0.8 10^3/uL (0.0-1.0); MONOCYTES % (AUTO) 8.9 %; NEUTROPHILS # (AUTO) 3.9 10^3/uL (1.5-6.6); NEUTROPHILS % (AUTO) 44.8 %; PLT - PLATELET COUNT 250 10^3/uL (130-450); RED BLOOD COUNT 4.39 10^6/uL (4.20-5.40); RED CELL DISTRIBUTION WIDTH 11.4 % (12.0-15.0); WHITE BLOOD COUNT 8.6 x10^3/uL (4.8-10.8)
[2021-12-22 20:18] LABS: ALBUMIN 4.7 g/dL (3.2-5.5); ALBUMIN/GLOBULIN RATIO 1.7 (1.0-2.2); BILIRUBIN,TOTAL 0.7 mg/dL (0.2-1.0); CALCIUM 9.2 mg/dL (8.5-10.3); CREATININE 0.7 mg/dL (0.4-1.0); POTASSIUM 3.5 mmol/L (3.5-5.0); TOTAL PROTEIN 7.5 g/dL (6.7-8.2)
--- NOTE | 2021-12-22 20:30 | ED Physician Documentation ---
PD HPI FEMALE - Stated complaint Stated Complaint: FEMALE /BLEEDING - Chief complaint Chief Complaint: Abd Pain - History obtained from History obtained from: Patient - Additional information Additional information: Patient is a 26-year-old female presenting for evaluation of heavy vaginal bleeding that is been ongoing for the past 3 weeks. She says she is saturated through numerous pads today and has stopped wearing pads as they are no longer enough to contain her bleeding. For the last days she has been feeling dizzy with standing. She has a Nexplanon in that Was inserted 1 year ago. Several months ago she had a similar episode where she was bleeding heavily for 3 weeks. She contacted her [employer] through the [facility] who stated that she could come in to have it removed if it did not resolve in 24 to 48 hours. They decided that if it occurred again that she should have the Nexplanon removed. She called the on-call for her [employer] and spoke to the nurse who direc melissa her to the emergency department. Patient denies chest pain, difficulty breathing, abdominal pain, vomiting, concerns for pregnancies, vaginal discharge or concerns for sexually transmitted infections. My colleague spoke to OB prior to the patient's arrival who stated that he could remove the Nexplanon by making a small incision or having the patient come into the office on Saturday to have it removed if she desired. Review of Systems Constitutional: denies: Fever Nose: denies: Congestion Cardiac: denies: Chest pain / pressure Respiratory: denies: Dyspnea GI: denies: Abdominal Pain, Vomiting : reports: Vaginal bleeding Musculoskeletal: denies: Back pain Neurologic: denies: Headache PD PAST MEDICAL HISTORY - Past Medical History Respiratory: Asthma : Kidney stones, Chronic bladder infection Psych: Anxiety - Past Surgical History Past Surgical History: No - Present Medications Home Medications: Ambulatory Orders Medication Instructions Recorded Confirmed No Known Home Medications 12/22/21 12/22/21 - Allergies Allergies/Adverse Reactions: Allergies Allergy/AdvReac Type Severity Reaction Status Date / Time latex Allergy Intermediate unknown Verified 12/22/21 19:43 Penicillins Allergy Mild unknown Verified 12/22/21 19:43 Sulfa (Sulfonamide Allergy Edema Verified 12/22/21 19:43 Antibiotics) acetaminophen [From Vicodin] AdvReac Mild unknown Verified 12/22/21 19:43 codeine [Codeine] AdvReac Mild Nausea Verified 12/22/21 19:43 hydrocodone bitartrate * AdvReac Mild unknown Verified 12/22/21 19:43 [From Vicodin] nitrofurantoin AdvReac Rash Verified 12/22/21 19:43 [From Macrobid] nitrofurantoin AdvReac Rash Verified 12/22/21 19:43 macrocrystalline * [From Macrobid] tape AdvReac Mild unknown Uncoded 12/22/21 19:43 - Social History Does the pt smoke?: Yes Smoking Status: Current every day smoker Does the pt drink ETOH?: No Does the pt have substance abuse?: Yes - Immunizations Immunizations are current?: Yes - POLST Patient has POLST: No PD ED PE NORMAL - General General: Alert and oriented X 3, No acute distress, Well developed/nourished - HEENT HEENT: Atraumatic, Moist mucous membranes - Neck Neck: Supple, no meningeal sign - Cardiac Cardiac: RRR, Strong equal pulses - Respiratory Respiratory: No respiratory distress, Clear bilaterally - Abdomen Abdomen: Soft, Non tender, Non distended - Female Female : Pt declined - Derm Derm: Warm and dry - Extremities Extremities: Other (Nexplanon palpated in left upper arm) Results - Vitals Vitals: Vital Signs - 24 hr 12/22/21 12/22/21 19:37 21:17 Temperature 36.8 C 36.5 C Heart Rate 74 74 Respiratory 16 16 Rate Blood Pressure 121/70 128/72 O2 Saturation 98 100 Oxygen O2 Source Room air - Labs Labs: Laboratory Tests 12/22/21 12/22/21 12/22/21 19:57 19:57 19:57 WBC 8.6 RBC 4.39 Hgb 13.5 Hct 39.6 MCV 90.2 MCH 30.8 MCHC 34.1 RDW 11.4 L Plt Count 250 MPV 10.2 Neut # (Auto) 3.9 Lymph # (Auto) 3.3 [place] # (Auto) 0.8 Eos # (Auto) 0.7 Baso # (Auto) 0.1 Absolute Nucleated RBC 0.00 Nucleated RBC % 0.0 Sodium 136 Potassium 3.5 Chloride 103 Carbon Dioxide 24 Anion Gap 9.0 BUN 16 Creatinine 0.7 Estimated GFR (MDRD) 100 Glucose 99 Calcium 9.2 Total Bilirubin 0.7 AST 25 ALT 15 Alkaline Phosphatase 44 Total Protein 7.5 Albumin 4.7 Globulin 2.8 Albumin/Globulin Ratio 1.7 Lipase 29 Urine HCG, Qual Blood Type O POSITIVE 12/22/21 20:15 WBC RBC Hgb Hct MCV MCH MCHC RDW Plt Count MPV Neut # (Auto) Lymph # (Auto) [place] # (Auto) Eos # (Auto) Baso # (Auto) Absolute Nucleated RBC Nucleated RBC % Sodium Potassium Chloride Carbon Dioxide Anion Gap BUN Creatinine Estimated GFR (MDRD) Glucose Calcium Total Bilirubin AST ALT Alkaline Phosphatase Total Protein Albumin Globulin Albumin/Globulin Ratio Lipase Urine HCG, Qual NEGATIVE Blood Type Procedures - General procedure General procedure: Nexplanon removal Patient gave verbal consent after discussing the options on having her follow-up with [employer] to have it removed on Saturday. Skin was cleaned with alcohol; 2cc lidocaine with epinephrine were injected underneath the tip of the Nexplanon. Small parallel incision was made with 11 blade.Nexplanon was grasped with forceps and removed in its entirety. Band-Aid was applied to Incision. Patient tolerated well with no apparent complications. PD MEDICAL DECISION MAKING - ED course Complexity details: reviewed results, re-evaluated patient ED course: Patient presenting for evaluation of abnormal vaginal bleeding. She has had a Nexplanon in for the last year and was advised by her OB that having it removed could help with her symptoms. Her vital signs are stable. She is able to ambulate easily from the bed to the bathroom and does not appear clinically to be dizzy. Her labs are reassuring and she is not . My colleague (Dr. Perales) had spoken to on-call OB (Dr. Wild) Who advised that the Nexplanon could be removed in the ED or patient could wait until Saturday. We offered patient both of these options and she prefers to have her Mirena today. It was removed in its entirety without difficulty. Patient is aware that she should use other methods for contraception if she chooses. She is also advised on concerning symptoms to return for. Patient declined pelvic exam. Departure - Departure Disposition: 01 Home, Self Care Clinical Impression: Encounter for Nexplanon removal, Menorrhagia Condition: Stable Instructions: ED Bleeding Menstrual Heavy Comments: You were evaluated for heavy vaginal bleeding. Fortunately your labs appear stable. After discussing the options, you have opted to have your Nexplanon removed in the emergency department. I removed the Nexplanon device in its entirety. Please have close follow-up with your [employer] IN[employer]CTURE ENGINEER to discuss other options for your menstrual cycles or for contraception.If you have any new or worsening symptoms please consider return to the emergency department. Discharge Date/Time: 12/22/21 21:18
[2021-12-22 20:34] LABS: HCG UR QUAL NEGATIVE
[2021-12-22 21:19] VITALS: BP 128/72
== END 2021-12-22 21:18 | disposition home or self-care (01) ==
LOC: ED 19:28
DX: N92.0 Excessive and frequent menstruation with regular cycle (principal); Z30.46 Encounter for surveillance of implantable subdermal contraceptive; F17.200 Nicotine dependence, unspecified, uncomplicated
CPT/HCPCS: 36415; 80053; 81025; 83690; 85025; 86900; 86901; 99282; 99283